=== PATIENT | female | born 1985 | race Caucasian/White ===

== ENCOUNTER 2019-01-04 15:13 | Emergency (ER) | payer BC ==
[2019-01-04] MEDS ORDERED: HYDROcodone/Acetaminophen 10/325 mg Tablet ONE (15:24)
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
[2019-01-04] MEDS ORDERED: Acetaminophen 325 MG/10.15 ML UDCUP ONE (15:51)
== END 2019-01-04 16:28 | disposition home or self-care (01) ==
LOC: ERS 15:13
DX: S80.11XA Contusion of right lower leg, initial encounter (principal); H60.92 Unspecified otitis externa, left ear; H66.92 Otitis media, unspecified, left ear; I10 Essential (primary) hypertension; F41.9 Anxiety disorder, unspecified; F32.9 Major depressive disorder, single episode, unspecified; Z79.899 Other long term (current) drug therapy; V44.5XXA Car driver injured in collision with heavy transport vehicle or bus in traffic accident, initial encounter